=== PATIENT | male | born 1955 | race Caucasian/White ===

== ENCOUNTER 2016-09-08 10:04 | Emergency (ER) | payer MEDICAID ==
[~2016-09-08] VITALS: Ht 172.7 cm; Wt 97.2 kg
[2016-09-08] MEDS ORDERED: HYDROcodone/APAP 5/325 TABLET PO ONE (10:30)
[2016-09-08] MEDS ORDERED: METHOCARBAMOL 750 MG TABLET PO ONE (10:30)
[2016-09-08] MEDS ORDERED: KETOROLAC 30 MG/1 ML IM ONE (10:30)
[2016-09-08] MEDS ORDERED: HYDROcodone/APAP 5/325 TABLET ONE (10:37)
[2016-09-08] MEDS ORDERED: METHOCARBAMOL 750 MG TABLET ONE (10:37)
[2016-09-08] MEDS ORDERED: KETOROLAC 30 MG/1 ML ONE (10:37)
[2016-09-08 11:21] VITALS: BP 157/90
== END 2016-09-08 11:24 | disposition home or self-care (01) ==
LOC: ED 10:53
DX: G89.29 Other chronic pain (principal); M54.5 Low back pain; I10 Essential (primary) hypertension; E11.9 Type 2 diabetes mellitus without complications; Z88.0 Allergy status to penicillin
CPT/HCPCS: 96372; 99283; J1885

== ENCOUNTER 2016-10-26 19:45 | Observation (INO) | payer MEDICAID ==
[~2016-10-26] VITALS: Ht 172.7 cm; Wt 120.8 kg
[2016-10-26 20:22] LABS: ASPARTATE AMINO TRANSFERASE 39 U/L (15-37); BLOOD UREA NITROGEN 29 mg/dL (7-18)
[2016-10-26] MEDS ORDERED: SODIUM CHLORIDE 0.9% 1,000ML IVBOLUS ONE (21:00)
[2016-10-26] MEDS ORDERED: SODIUM CHLORIDE FLUSH 10ML SYR IVF ONE (21:00)
[2016-10-26] MEDS ORDERED: ONDANSETRON 2MG/ML, 2ML IVPush ONE (21:00)
[2016-10-26] MEDS ORDERED: HYDROmorphone 2 MG/ML, 1ML ONE (21:13)
[2016-10-26] MEDS ORDERED: ONDANSETRON 2MG/ML, 2ML ONE (21:13)
[2016-10-26] MEDS: HYDROmorphone 1 MG/ML, 1ML IVPush PRN ×2 (21:16→21:40)
[2016-10-26] MEDS ORDERED: FLUO20CA19 PO (21:22)
[2016-10-26] MEDS ORDERED: ASPI-515 PO (21:22)
[2016-10-26] MEDS ORDERED: METF10002 PO (21:22)
[2016-10-26] MEDS ORDERED: BUPIVACAINE/PF-EPI 0.5% 1:200K ONE (22:33)
[2016-10-26] MEDS ORDERED: MIDAZOLAM 1 MG/ML, 2ML ONE (22:38)
[2016-10-26] MEDS ORDERED: FENTANYL PF 250 MCG/5ML ONE (22:38)
[2016-10-26] MEDS ORDERED: DEXAMETHASONE 4 MG/ML, 1ML ONE (22:47)
[2016-10-26] MEDS ORDERED: SUCCINYLCHOLINE 20 MG/ML, 10ML ONE (22:47)
[2016-10-26] MEDS ORDERED: ALBUTEROL SULFATE 200 PUFFS/8.5 GR INH ONE (22:47)
[2016-10-26] MEDS ORDERED: PROPOFOL 10 MG/ML, 20ML ONE (22:47)
[2016-10-26] MEDS ORDERED: PHENYLEPHRINE 10 MG/ML ONE (22:47)
[2016-10-26] MEDS ORDERED: CEFAZOLIN 1,000 MG ONE (22:47)
[2016-10-26] MEDS ORDERED: BUPIVACAINE/PF-EPI 0.5% 1:200K INFIL ONE ×2 (23:15→23:53)
[2016-10-26 23:29] LABS: DAU SCREEN DISCLAIMER
[2016-10-27] MEDS ORDERED: HYDROmorphone 2 MG/ML, 1ML ONE (00:19)
[2016-10-27] MEDS ORDERED: FENTANYL PF 100 MCG/2ML ONE (00:20)
[2016-10-27] MEDS ORDERED: FENTANYL PF 100 MCG/2ML IV PRN (00:30)
[2016-10-27] MEDS ORDERED: HYDROmorphone 1 MG/ML, 1ML IVPush PRN (00:30)
[2016-10-27] MEDS ORDERED: LABETALOL 5MG/ML, 20ML IV PRN (00:30)
[2016-10-27] MEDS ORDERED: ONDANSETRON 2MG/ML, 2ML IVPush PRN ×2 (00:30)
[2016-10-27] MEDS ORDERED: PROMETHAZINE 25 MG/ML, 1ML IV PRN (00:30)
[2016-10-27] MEDS ORDERED: ACETAMINOPHEN 325 MG TABLET PO PRN ×2 (00:30)
[2016-10-27] MEDS ORDERED: ALBUTEROL/IPRATROPIUM 2.5MG/0.5MG, 3 ML NPPB PRN (00:30)
[2016-10-27] MEDS ORDERED: LABETALOL 5MG/ML, 20ML IVPush PRN (00:30)
[2016-10-27] MEDS ORDERED: HYDROmorphone 1 MG/ML, 1ML IV PRN (00:30)
[2016-10-27] MEDS ORDERED: MIDAZOLAM 1 MG/ML, 2ML IV PRN (00:30)
[2016-10-27] MEDS ORDERED: PROMETHAZINE 25 MG/ML, 1ML IM PRN (00:30)
[2016-10-27] MEDS ORDERED: MEPERIDINE/PF 25MG/0.5ML IVPush PRN (00:30)
[2016-10-27] MEDS ORDERED: ENALAPRILAT 1.25 MG/ML, 2ML IVPush PRN (00:30)
[2016-10-27] MEDS ORDERED: OXYcodone 5 MG/5 ML ORAL.SOL UDC PO PRN (00:30)
[2016-10-27] MEDS ORDERED: hydrALAzine 20 MG/ML, 1ML IV PRN (00:30)
[2016-10-27] MEDS ORDERED: LORazepam 2 MG/ML, 1ML IVPush PRN (02:30)
[2016-10-27] MEDS: D5%-0.45NACL+KCL 20MEQ 1,000 ML IV SCH ×2 (03:49→12:00)
[2016-10-27] MEDS: OXYcodone/APAP 7.5/325MG TABLET PO PRN ×2 (05:39→12:50)
[2016-10-27 08:03] VITALS: BP 119/69
[2016-10-27] MEDS ORDERED: OXYC-223 PO (10:39)
[2016-10-27 12:44] VITALS: BP 136/82
== END 2016-10-27 12:59 | disposition home or self-care (01) ==
LOC: ED 21:35 → EDIP 10-27 00:03 → 4NOR 10-27 01:00
PROVIDERS: ADMIT Surgery; ATTEND Surgery
DX: K44.0 Diaphragmatic hernia with obstruction, without gangrene (principal); I10 Essential (primary) hypertension; E11.9 Type 2 diabetes mellitus without complications; G89.29 Other chronic pain; M54.9 Dorsalgia, unspecified; J44.9 Chronic obstructive pulmonary disease, unspecified; E66.9 Obesity, unspecified; F32.9 Major depressive disorder, single episode, unspecified
CPT/HCPCS: 36415; 49507; 76857; 80053; 80307; 81001; 83605; 85025; 96374; 96375; 96376; 99285; C1781; G0378; J0330; J0690; J1100; J1170; J2060; J2250; J2370; J2405; J2704; J3010; J3480; J7030

== ENCOUNTER 2016-10-28 02:16 | Emergency (ER) | payer MEDICAID ==
[~2016-10-28] VITALS: Ht 172.7 cm; Wt 96.6 kg
[~2016-10-28 02:16] MED LIST: ASPI-515 PO; FLUO20CA19 PO; METF10002 PO; OXYC-223 PO
[2016-10-28 02:18] VITALS: BP 170/98
[2016-10-28] MEDS ORDERED: OXYcodone/APAP 5/325MG TABLET ONE (03:21)
[2016-10-28] MEDS ORDERED: OXYcodone/APAP 5/325MG TABLET PO ONE (03:30)
== END 2016-10-28 03:26 | disposition home or self-care (01) ==
LOC: ED 02:53
DX: Z76.0 Encounter for issue of repeat prescription (principal); I10 Essential (primary) hypertension; E11.9 Type 2 diabetes mellitus without complications; R10.9 Unspecified abdominal pain
CPT/HCPCS: 99282

== ENCOUNTER 2016-10-28 07:39 | Emergency (ER) | payer MEDICAID ==
[~2016-10-28] VITALS: Ht 172.7 cm; Wt 96.6 kg
[2016-10-28] MEDS ORDERED: OXYcodone/APAP 5/325MG TABLET ONE (08:16)
[2016-10-28] MEDS ORDERED: OXYcodone/APAP 5/325MG TABLET PO ONE (08:30)
[2016-10-28 08:53] LABS: ASPARTATE AMINO TRANSFERASE 30 U/L (15-37); BLOOD UREA NITROGEN 19 mg/dL (7-18)
[2016-10-28 10:20] LABS: PATH.CAST-FLAG NOT PRESENT; SPERM-FLAG NOT PRESENT; SRC-FLAG NOT PRESENT; XTAL-FLAG NOT PRESENT; YLC-FLAG NOT PRESENT
[2016-10-28 10:50] VITALS: BP 134/82
== END 2016-10-28 10:59 | disposition home or self-care (01) ==
LOC: ED 10:57
DX: Z76.0 Encounter for issue of repeat prescription (principal); E11.65 Type 2 diabetes mellitus with hyperglycemia; R10.30 Lower abdominal pain, unspecified; F17.210 Nicotine dependence, cigarettes, uncomplicated; I10 Essential (primary) hypertension
CPT/HCPCS: 36415; 76870; 80053; 81001; 83690; 85025; 99285

== ENCOUNTER 2016-11-03 05:25 | Emergency (ER) | payer MEDICAID ==
[~2016-11-03] VITALS: Ht 172.7 cm; Wt 93.2 kg
[2016-11-03 05:35] VITALS: BP 166/99
[2016-11-03] MEDS ORDERED: OXYcodone/APAP 5/325MG TABLET PO ONE (06:30)
== END 2016-11-03 06:34 | disposition home or self-care (01) ==
LOC: ED 06:27
DX: R10.31 Right lower quadrant pain (principal); E11.9 Type 2 diabetes mellitus without complications; I10 Essential (primary) hypertension
CPT/HCPCS: 99283

== ENCOUNTER 2016-12-28 19:52 | Emergency (ER) | payer MEDICAID ==
[~2016-12-28] VITALS: Ht 172.7 cm; Wt 95.9 kg
[~2016-12-28 19:52] MED LIST changes: -OXYC-223 PO; +OXYC-306 PO
[2016-12-28] MEDS ORDERED: ALBUTEROL SULFATE 2.5 MG/3 ML ONE (20:09)
[2016-12-28] MEDS ORDERED: methylPREDNISolone SOD SUCC 125 MG/2 ML ONE (20:20)
[2016-12-28 20:23] LABS: HEMATOCRIT 40.7 % (39.2-51.8); HEMOGLOBIN 13.7 g/dL (13.7-18.0); WHITE BLOOD COUNT 8.1 x10^3/uL (3.4-10)
[2016-12-28] MEDS ORDERED: ALBUTEROL/IPRATROPIUM 2.5MG/0.5MG, 3 ML NPPB ONE ×2 (20:30→21:30)
[2016-12-28] MEDS ORDERED: SODIUM CHLORIDE FLUSH 10ML SYR IVF ONE (20:30)
[2016-12-28] MEDS ORDERED: methylPREDNISolone SOD SUCC 125 MG/2 ML IVP ONE (20:30)
[2016-12-28 20:33] LABS: BLOOD UREA NITROGEN 15 mg/dL (7-18)
[2016-12-28 20:39] LABS: IS PT STATUS REG ER OR PRE ER? YES
[2016-12-28] MEDS ORDERED: ALBUTEROL/IPRATROPIUM 2.5MG/0.5MG, 3 ML ONE (21:07)
[2016-12-28 21:39] VITALS: BP 120/69
== END 2016-12-28 22:36 | disposition home or self-care (01) ==
LOC: ED 20:07
DX: J44.1 Chronic obstructive pulmonary disease with (acute) exacerbation (principal); I10 Essential (primary) hypertension; E11.9 Type 2 diabetes mellitus without complications; F17.210 Nicotine dependence, cigarettes, uncomplicated
CPT/HCPCS: 36415; 71010; 80048; 82040; 83880; 84484; 85025; 93005; 94640; 96374; 99284; J2930

== ENCOUNTER 2017-03-30 21:42 | Emergency (ER) | payer MEDICAID ==
[~2017-03-30] VITALS: Ht 172.7 cm; Wt 96.6 kg
[2017-03-30 21:43] VITALS: BP 156/103
[2017-03-30] MEDS ORDERED: DIPH,PERTUSS(ACELL),TET VAC/PF 0.5 ML IM-VACC ONE ×2 (22:00→22:03)
== END 2017-03-30 22:24 | disposition home or self-care (01) ==
LOC: ED 22:09
DX: S80.811A Abrasion, right lower leg, initial encounter (principal); G89.29 Other chronic pain; M54.9 Dorsalgia, unspecified; I10 Essential (primary) hypertension; E11.9 Type 2 diabetes mellitus without complications; J44.9 Chronic obstructive pulmonary disease, unspecified; F17.210 Nicotine dependence, cigarettes, uncomplicated; W45.0XXA Nail entering through skin, initial encounter; Y93.89 Activity, other specified; Y99.8 Other external cause status; Y92.410 Unspecified street and highway as the place of occurrence of the external cause
CPT/HCPCS: 90471; 90715

== ENCOUNTER 2017-04-20 13:52 | Emergency (ER) | payer MEDICAID ==
[~2017-04-20] VITALS: Ht 172.7 cm; Wt 93.4 kg
[2017-04-20 14:22] LABS: HEMATOCRIT 47.7 % (39.2-51.8); HEMOGLOBIN 16.1 g/dL (13.7-18.0); WHITE BLOOD COUNT 13.8 x10^3/uL (3.4-10)
[2017-04-20] MEDS ORDERED: ALBUTEROL SULFATE 2.5 MG/3 ML NPPB ONE (14:30)
[2017-04-20 14:31] LABS: BLOOD UREA NITROGEN 14 mg/dL (7-18)
[2017-04-20 16:45] VITALS: BP 126/86
== END 2017-04-20 16:46 | disposition home or self-care (01) ==
LOC: ED 16:12
DX: J20.9 Acute bronchitis, unspecified (principal); Z77.22 Contact with and (suspected) exposure to environmental tobacco smoke (acute) (chronic); J43.9 Emphysema, unspecified; M54.5 Low back pain; G89.29 Other chronic pain; I10 Essential (primary) hypertension; E11.9 Type 2 diabetes mellitus without complications
CPT/HCPCS: 36415; 71010; 80048; 82040; 85025; 93005; 99285; J7512

== ENCOUNTER 2017-05-21 11:34 | Emergency (ER) | payer MEDICAID ==
[~2017-05-21] VITALS: Ht 172.7 cm; Wt 91.0 kg
[2017-05-21 11:35] VITALS: BP 154/92
[2017-05-21] MEDS ORDERED: ALBUTEROL/IPRATROPIUM 2.5MG/0.5MG, 3 ML ONE (12:49)
[2017-05-21] MEDS ORDERED: BENZONATATE 100 MG CAPSULE PO ONE (13:00)
[2017-05-21] MEDS ORDERED: ALBUTEROL/IPRATROPIUM 2.5MG/0.5MG, 3 ML NPPB SCH (13:00)
== END 2017-05-21 13:39 | disposition home or self-care (01) ==
LOC: ED 13:20
DX: J44.1 Chronic obstructive pulmonary disease with (acute) exacerbation (principal); J20.9 Acute bronchitis, unspecified; I10 Essential (primary) hypertension; E11.9 Type 2 diabetes mellitus without complications
CPT/HCPCS: 71046; 93005; 94640; 99284; J7512; J7620

== ENCOUNTER 2017-09-16 12:01 | Emergency (ER) | payer MEDICAID ==
[~2017-09-16] VITALS: Ht 172.7 cm; Wt 90.8 kg
[~2017-09-16 12:01] MED LIST changes: +Aspirin PO; +Lipitor PO; +Melatonin PO; +Metformin PO; +Prozac PO
[2017-09-16 12:02] VITALS: BP 160/86
== END 2017-09-16 13:04 | disposition home or self-care (01) ==
LOC: ED 13:00
DX: B86 Scabies (principal); I10 Essential (primary) hypertension; E11.9 Type 2 diabetes mellitus without complications; J44.9 Chronic obstructive pulmonary disease, unspecified
CPT/HCPCS: 82962; 99283; Q0177

== ENCOUNTER 2017-09-30 18:25 | Inpatient (IN) | payer MEDICAID ==
[~2017-09-30] VITALS: Ht 172.7 cm; Wt 89.7 kg
[2017-09-30 19:19] LABS: MEAN CORPUSCULAR HEMOGLOBIN 29.2 pg (27.5-34.5); MEAN CORPUSCULAR HGB CONC 33.3 g/dL (33.2-36.2); MEAN CORPUSCULAR VOLUME 87.6 fL (81-97); MEAN PLATELET VOLUME 8.4 fL (7.4-10.4); PLATELET COUNT 209 x10^3/uL (130-400); RED BLOOD COUNT 4.96 x10^6/uL (4.38-5.82); RED CELL DISTRIBUTION WIDTH 15.6 % (9.4-14.8)
[2017-09-30 19:23] LABS: MD YES
[2017-09-30 19:31] LABS: ALANINE AMINOTRANSFERASE 40 U/L (12-78); ALBUMIN 3.6 g/dL (3.4-5.0); ANION GAP 6 mmol/L (5-15); CHLORIDE 102 mmol/L (98-107); CREATININE 2.01 mg/dL (0.7-1.3)
[2017-09-30 19:33] LABS: ALKALINE PHOSPHATASE 109 U/L (45-117); BILIRUBIN,TOTAL 0.5 mg/dL (0.2-1.0); TOTAL PROTEIN 7.8 g/dL (6.4-8.2)
[2017-09-30 19:53] LABS: <PLATELET ESTIMATE> ADEQUATE; <PLT MORPHOLOGY> NORMAL PLT MORPH; <RBC MORPHOLOGY> NORMAL; EOS#(MANUAL) 1.98 x10^3/uL (0.0-0.4); EOS% (MANUAL) 16 % (1-7); LYMPH#(MANUAL) 1.98 x10^3/uL (1-3.4); LYMPHS% (MANUAL) 16 % (22-44); MONOS#(MANUAL) 0.87 x10^3/uL (0.3-2.7); MONOS% (MANUAL) 7 % (2-9); SEG#(MANUAL) 7.56 x10^3/uL (1.8-6.8); SEGS% (MANUAL) 61 % (42-75)
[2017-09-30] MEDS ORDERED: DIPHENHYDRAMINE 50 MG/ML, 1ML ONE (20:20)
[2017-09-30] MEDS ORDERED: SODIUM CHLORIDE 0.9% 1,000ML IVBOLUS ONE (20:30)
[2017-09-30] MEDS ORDERED: ICN DIPHENHYDRAMINE 10 MG/ML INJ.DIL IV ONE (20:30)
[2017-09-30] MEDS ORDERED: SODIUM CHLORIDE FLUSH 10ML SYR IVF ONE (20:30)
[2017-09-30] MEDS ORDERED: DIPHENHYDRAMINE 50 MG/ML, 1ML IV ONE (20:30)
[2017-09-30] MEDS ORDERED: BACITRACIN ZINC OINT 500U/GM, 0.9 GM ONE (20:44)
[2017-09-30] MEDS ORDERED: ALBU2TAB PO (21:09)
[2017-09-30] MEDS ORDERED: HYPERTENSION (21:09)
[2017-09-30] MEDS ORDERED: BISACODYL 10 MG SUPP PR PRN (21:30)
[2017-09-30] MEDS ORDERED: ACETAMINOPHEN 325 MG TABLET PO PRN (21:30)
[2017-09-30] MEDS ORDERED: POLYETHYLENE GLYCOL 17 GM PACKET PO PRN (21:30)
[2017-09-30] MEDS ORDERED: DOCUSATE 100 MG CAPSULE PO PRN (21:30)
[2017-09-30] MEDS ORDERED: ONDANSETRON 2MG/ML, 2ML IVPush PRN (21:30)
[2017-09-30] MEDS ORDERED: CALAMINE LOTION 180ML TP PRN (21:30)
[2017-09-30] MEDS ORDERED: hydrALAzine 20 MG/ML, 1ML IVPush PRN (21:30)
[2017-09-30 21:54] LABS: MICROSCOPIC NOT IND
[2017-09-30 21:57] LABS: CULTURE INDICATED? NO
[2017-09-30 22:11] LABS: AMPHETAMINE SCREEN, URINE Positive (Negative); BARBITURATE SCREEN, URINE Negative (Negative); BENZODIAZEPINE SCREEN, URINE Negative (Negative); CANNABINOID SCREEN, URINE Negative (Negative); COCAINE SCREEN, URINE Negative (Negative); METHADONE SCREEN, URINE Negative (Negative); OPIATE SCREEN, URINE Negative (Negative)
[2017-09-30 22:30] VITALS: BP 125/85
[2017-09-30] MEDS: SODIUM CHLORIDE 0.9% 1,000 ML IV SCH (23:04)
[2017-09-30] MEDS: HEPARIN 5,000 UNITS/ML, 1ML SQ SCH (23:04)
[2017-10-01 01:53] VITALS: BP 131/78
[2017-10-01] MEDS: HEPARIN 5,000 UNITS/ML, 1ML SQ SCH ×3 (04:43→21:28)
[2017-10-01 05:51] LABS: BASOPHILS # (AUTO) 0.01 x10^3/uL (0-0.1); BASOPHILS % (AUTO) 0 % (0-1); EOSINOPHILS # (AUTO) 0.16 x10^3/uL (0-0.4); EOSINOPHILS % (AUTO) 2 % (1-7); LYMPHOCYTES # (AUTO) 0.51 x10^3/uL (1-3.4); LYMPHOCYTES % (AUTO) 7 % (22-44); MD NO; MEAN CORPUSCULAR HEMOGLOBIN 29.3 pg (27.5-34.5); MEAN CORPUSCULAR HGB CONC 32.9 g/dL (33.2-36.2); MEAN PLATELET VOLUME 8.4 fL (7.4-10.4); MONOCYTES # (AUTO) 0.11 x10^3/uL (0.2-0.8); MONOCYTES % (AUTO) 2 % (2-9); NEUTROPHILS # (AUTO) 7.02 x10^3/uL (1.8-6.8); NEUTROPHILS % (AUTO) 90 % (42-75); PLATELET COUNT 192 x10^3/uL (130-400); RED BLOOD COUNT 4.79 x10^6/uL (4.38-5.82); RED CELL DISTRIBUTION WIDTH 15.6 % (9.4-14.8)
[2017-10-01 05:56] LABS: CHLORIDE 104 mmol/L (98-107)
[2017-10-01 06:06] LABS: ALANINE AMINOTRANSFERASE 34 U/L (12-78); ALKALINE PHOSPHATASE 97 U/L (45-117); ANION GAP 9 mmol/L (5-15); BILIRUBIN,TOTAL 0.6 mg/dL (0.2-1.0); CALCIUM 8.6 mg/dL (8.5-10.1); CREATININE 1.45 mg/dL (0.7-1.3)
[2017-10-01 07:20] VITALS: BP 107/63
[2017-10-01 07:33] LABS: CREATININE,URINE RANDOM 44.7 mg/dL
[2017-10-01] MEDS: DIPHENHYDRAMINE 25 MG CAPSULE PO PRN ×2 (07:51→21:27)
[2017-10-01] MEDS ORDERED: methylPREDNISolone 4mg DOSE PACK PO SCH (08:00)
[2017-10-01] MEDS: SODIUM CHLORIDE 0.9% 1,000 ML IV SCH (08:03)
[2017-10-01 14:56] VITALS: BP 127/71
[2017-10-01 20:19] VITALS: BP 126/70
[2017-10-01] MEDS: HYDROXYZINE PAMOATE 50MG CAP PO PRN (22:31)
[2017-10-02 02:10] VITALS: BP 107/64
[2017-10-02] MEDS: HYDROXYZINE PAMOATE 50MG CAP PO PRN ×2 (05:25→20:18)
[2017-10-02] MEDS: DIPHENHYDRAMINE 25 MG CAPSULE PO PRN ×2 (05:25→20:18)
[2017-10-02] MEDS: HEPARIN 5,000 UNITS/ML, 1ML SQ SCH ×3 (05:26→22:27)
[2017-10-02 06:06] VITALS: BP 152/85
[2017-10-02 07:50] VITALS: BP 146/80
[2017-10-02 13:31] VITALS: BP 111/55
[2017-10-02 19:03] VITALS: BP 127/77
[2017-10-02] MEDS: FAMOTIDINE 20 MG TABLET PO SCH (20:18)
[2017-10-03 01:39] VITALS: BP 132/85
[2017-10-03] MEDS: DIPHENHYDRAMINE 25 MG CAPSULE PO PRN (05:30)
[2017-10-03] MEDS: HYDROXYZINE PAMOATE 50MG CAP PO PRN (05:30)
[2017-10-03] MEDS: HEPARIN 5,000 UNITS/ML, 1ML SQ SCH ×2 (05:30→14:10)
[2017-10-03 06:13] LABS: CHLORIDE 103 mmol/L (98-107)
[2017-10-03 07:04] LABS: ANION GAP 10 mmol/L (5-15); CALCIUM 8.9 mg/dL (8.5-10.1)
[2017-10-03 07:18] VITALS: BP 136/80
[2017-10-03] MEDS: FAMOTIDINE 20 MG TABLET PO SCH (08:59)
[2017-10-03] MEDS ORDERED: FAMO20TA7 PO (13:37)
[2017-10-03] MEDS ORDERED: CALA118S2 TP (13:37)
[2017-10-03] MEDS ORDERED: PRED10TA PO (13:37)
[2017-10-03] MEDS ORDERED: HYDR50CA2 PO (13:37)
[2017-10-03] MEDS ORDERED: DIPH25CA61 PO (13:37)
[2017-10-03 15:19] VITALS: BP 151/87
== END 2017-10-03 18:45 | disposition home or self-care (01) | DRG 606 ==
LOC: ED 20:22 → EDIP 21:22 → 4WST 22:26
PROVIDERS: ADMIT Internal Medicine; ATTEND Hospitalist
DX: L30.8 Other specified dermatitis (principal); N17.0 Acute kidney failure with tubular necrosis; E87.1 Hypo-osmolality and hyponatremia; L29.9 Pruritus, unspecified; B86 Scabies; E87.5 Hyperkalemia; F17.210 Nicotine dependence, cigarettes, uncomplicated; F41.9 Anxiety disorder, unspecified; I11.9 Hypertensive heart disease without heart failure; J44.9 Chronic obstructive pulmonary disease, unspecified; L50.1 Idiopathic urticaria; E11.65 Type 2 diabetes mellitus with hyperglycemia; Z79.84 Long term (current) use of oral hypoglycemic drugs
CPT/HCPCS: 36415; 80048; 80053; 80307; 81003; 82436; 82570; 83735; 84132; 84133; 84300; 85025; 93005; 96361; 96374; J1644; J7509; J7030; J7512; Q0163; Q0177

== ENCOUNTER 2017-11-25 02:53 | Inpatient (IN) | payer MEDICAID ==
[~2017-11-25] VITALS: Ht 172.7 cm; Wt 84.9 kg
[~2017-11-25 02:53] MED LIST changes: +ALBU2TAB PO; +CALA118S2 TP; +DIPH25CA61 PO; +FAMO20TA7 PO; +HYDR50CA2 PO; +HYPERTENSION; +PRED10TA PO
[2017-11-25] MEDS ORDERED: ALBUTEROL SULFATE 2.5 MG/3 ML NPPB ONE (03:00)
[2017-11-25] MEDS ORDERED: methylPREDNISolone SOD SUCC 125 MG/2 ML IVP ONE (03:00)
[2017-11-25] MEDS ORDERED: ALBUTEROL SULFATE 2.5 MG/3 ML ONE (03:12)
[2017-11-25 03:17] LABS: MEAN CORPUSCULAR HGB CONC 33.8 g/dL (33.2-36.2); MEAN CORPUSCULAR VOLUME 85.8 fL (81-97); MEAN PLATELET VOLUME 7.8 fL (7.4-10.4); PLATELET COUNT 211 x10^3/uL (130-400); RED BLOOD COUNT 4.87 x10^6/uL (4.38-5.82); RED CELL DISTRIBUTION WIDTH 15.1 % (9.4-14.8)
[2017-11-25 03:28] LABS: ALANINE AMINOTRANSFERASE 20 U/L (12-78); ALBUMIN 3.1 g/dL (3.4-5.0); ANION GAP 8 mmol/L (5-15); CALCIUM 8.2 mg/dL (8.5-10.1); CHLORIDE 101 mmol/L (98-107); CREATININE 1.08 mg/dL (0.7-1.3)
[2017-11-25 03:33] LABS: ALKALINE PHOSPHATASE 94 U/L (45-117); BILIRUBIN,TOTAL 0.5 mg/dL (0.2-1.0); TOTAL PROTEIN 6.9 g/dL (6.4-8.2); TROPONIN I < 0.015 ng/mL (0.000-0.045)
[2017-11-25] MEDS ORDERED: methylPREDNISolone SOD SUCC 125 MG/2 ML ONE (03:37)
[2017-11-25 03:49] LABS: BASOPHILS % (AUTO) 0 % (0-1); EOSINOPHILS # (AUTO) 0.44 x10^3/uL (0-0.4); EOSINOPHILS % (AUTO) 4 % (1-7); LYMPHOCYTES # (AUTO) 0.63 x10^3/uL (1-3.4); LYMPHOCYTES % (AUTO) 5 % (22-44); MD SCAN; MONOCYTES # (AUTO) 0.26 x10^3/uL (0.2-0.8); MONOCYTES % (AUTO) 2 % (2-9); NEUTROPHILS # (AUTO) 10.55 x10^3/uL (1.8-6.8); NEUTROPHILS % (AUTO) 89 % (42-75)
[2017-11-25] MEDS ORDERED: METF500T5 PO (04:27)
[2017-11-25] MEDS ORDERED: SODIUM CHLORIDE 0.9% 1,000 ML IV ONE (04:29)
[2017-11-25] MEDS ORDERED: SODIUM CHLORIDE 0.9% 1,000ML IVBOLUS ONE (04:30)
[2017-11-25] MEDS ORDERED: AZITHROMYCIN 500 MG in SODIUM CHLORIDE 0.9% 250 ML IV ONE (04:30)
[2017-11-25] MEDS ORDERED: ONDANSETRON 2MG/ML, 2ML IVPush PRN ×2 (04:30→05:30)
[2017-11-25] MEDS ORDERED: MORPHINE SULFATE 4 MG/ML, 1ML IVPush PRN (04:30)
[2017-11-25] MEDS ORDERED: CEFTRIAXONE 1,000 MG in SODIUM CHLORIDE 0.9% 50 ML IVPB ONE (04:30)
[2017-11-25] MEDS ORDERED: CEFTRIAXONE PMX 1GM/50ML 50 ML ONE (05:02)
[2017-11-25] MEDS ORDERED: ENALAPRILAT 1.25 MG/ML, 2ML IVPush PRN (05:30)
[2017-11-25] MEDS ORDERED: ACETAMINOPHEN 325 MG TABLET PO PRN (05:30)
[2017-11-25] MEDS ORDERED: POLYETHYLENE GLYCOL 17 GM PACKET PO PRN (05:30)
[2017-11-25] MEDS ORDERED: GUAIFENESIN/DM 200-20MG, 10ML UDC PO PRN (05:30)
[2017-11-25] MEDS: ENOXAPARIN 40 MG/0.4 ML SQ SCH (05:48)
[2017-11-25] MEDS: SODIUM CHLORIDE 0.9% 1,000 ML IV SCH ×2 (05:48→20:42)
[2017-11-25 05:55] VITALS: BP 123/80
[2017-11-25] MEDS: DOXYCYCLINE 100 MG in DEXTROSE 5% 250 ML IV SCH ×2 (06:16→17:26)
[2017-11-25 06:47] VITALS: BP 108/65
[2017-11-25 06:48] VITALS: BP 132/81
[2017-11-25] MEDS: ALBUTEROL SULFATE 2.5 MG/3 ML NPPB SCH ×4 (06:50→20:10)
[2017-11-25] MEDS: methylPREDNISolone SOD SUCC 40 MG/ML IVPush SCH ×3 (08:26→20:42)
[2017-11-25] MEDS: FAMOTIDINE 20 MG TABLET PO SCH ×2 (08:26→20:42)
[2017-11-25] MEDS: NICOTINE 7 MG/24 HR PATCH.TD24 TD SCH (11:12)
[2017-11-25 12:22] VITALS: BP 111/72
[2017-11-25] MEDS: INSULIN REGULAR 100 UNITS/ML, 3ML VIAL SQ-INSULIN SCH ×3 (12:39→20:44)
[2017-11-25 19:22] VITALS: BP 113/68
[2017-11-25] MEDS ORDERED: hydrOXyzine 10 MG/5 ML ORAL SOL PO PRN (20:00)
[2017-11-26 01:17] VITALS: BP 112/76
[2017-11-26] MEDS: methylPREDNISolone SOD SUCC 40 MG/ML IVPush SCH ×4 (02:58→21:24)
[2017-11-26 05:31] LABS: MEAN CORPUSCULAR HEMOGLOBIN 29.7 pg (27.5-34.5); MEAN CORPUSCULAR HGB CONC 33.8 g/dL (33.2-36.2); MEAN CORPUSCULAR VOLUME 87.7 fL (81-97); MEAN PLATELET VOLUME 8.2 fL (7.4-10.4); PLATELET COUNT 215 x10^3/uL (130-400); RED BLOOD COUNT 4.56 x10^6/uL (4.38-5.82); RED CELL DISTRIBUTION WIDTH 14.8 % (9.4-14.8)
[2017-11-26] MEDS: ENOXAPARIN 40 MG/0.4 ML SQ SCH (05:35)
[2017-11-26] MEDS: CEFTRIAXONE 1,000 MG in SODIUM CHLORIDE 0.9% 50 ML IV SCH (05:35)
[2017-11-26 05:43] LABS: CHLORIDE 105 mmol/L (98-107)
[2017-11-26 05:50] LABS: ANION GAP 7 mmol/L (5-15); CALCIUM 8.6 mg/dL (8.5-10.1); CREATININE 0.81 mg/dL (0.7-1.3)
[2017-11-26 06:07] LABS: BASOPHILS # (AUTO) 0.03 x10^3/uL (0-0.1); BASOPHILS % (AUTO) 0 % (0-1); EOSINOPHILS % (AUTO) 0 % (1-7); LYMPHOCYTES # (AUTO) 0.84 x10^3/uL (1-3.4); LYMPHOCYTES % (AUTO) 6 % (22-44); MD SCAN; MONOCYTES # (AUTO) 0.66 x10^3/uL (0.2-0.8); MONOCYTES % (AUTO) 5 % (2-9); NEUTROPHILS # (AUTO) 12.93 x10^3/uL (1.8-6.8); NEUTROPHILS % (AUTO) 89 % (42-75)
[2017-11-26] MEDS: DOXYCYCLINE 100 MG in DEXTROSE 5% 250 ML IV SCH ×2 (06:15→17:35)
[2017-11-26 06:30] VITALS: BP 133/82
[2017-11-26] MEDS: FAMOTIDINE 20 MG TABLET PO SCH ×2 (08:14→21:23)
[2017-11-26] MEDS: INSULIN REGULAR 100 UNITS/ML, 3ML VIAL SQ-INSULIN SCH ×4 (08:14→20:50)
[2017-11-26] MEDS: ALBUTEROL SULFATE 2.5 MG/3 ML NPPB SCH ×4 (08:19→20:00)
[2017-11-26] MEDS: SODIUM CHLORIDE 0.9% 1,000 ML IV SCH (11:13)
[2017-11-26 12:05] VITALS: BP 112/66
[2017-11-26] MEDS: NICOTINE 7 MG/24 HR PATCH.TD24 TD SCH (12:11)
[2017-11-26 19:02] VITALS: BP 135/83
[2017-11-27 01:42] VITALS: BP 119/63
[2017-11-27] MEDS: methylPREDNISolone SOD SUCC 40 MG/ML IVPush SCH ×3 (03:53→16:34)
[2017-11-27] MEDS: SODIUM CHLORIDE 0.9% 1,000 ML IV SCH (03:53)
[2017-11-27] MEDS: CEFTRIAXONE 1,000 MG in SODIUM CHLORIDE 0.9% 50 ML IV SCH (04:43)
[2017-11-27] MEDS: ENOXAPARIN 40 MG/0.4 ML SQ SCH (04:43)
[2017-11-27] MEDS: DOXYCYCLINE 100 MG in DEXTROSE 5% 250 ML IV SCH (05:41)
[2017-11-27] MEDS: DIPHENHYDRAMINE/ZINC CRM 2%, 30GM TP PRN ×2 (05:42→21:52)
[2017-11-27] MEDS: ALBUTEROL SULFATE 2.5 MG/3 ML NPPB SCH ×3 (06:44→14:06)
[2017-11-27 07:17] VITALS: BP 144/84
[2017-11-27] MEDS: FAMOTIDINE 20 MG TABLET PO SCH ×2 (08:06→21:40)
[2017-11-27] MEDS: INSULIN REGULAR 100 UNITS/ML, 3ML VIAL SQ-INSULIN SCH ×4 (08:07→21:51)
[2017-11-27 08:09] LABS: ANION GAP 9 mmol/L (5-15); CALCIUM 8.7 mg/dL (8.5-10.1); CHLORIDE 103 mmol/L (98-107); CREATININE 0.82 mg/dL (0.7-1.3)
[2017-11-27 08:17] LABS: BASOPHILS # (AUTO) 0.01 x10^3/uL (0-0.1); BASOPHILS % (AUTO) 0 % (0-1); EOSINOPHILS % (AUTO) 0 % (1-7); LYMPHOCYTES # (AUTO) 0.97 x10^3/uL (1-3.4); LYMPHOCYTES % (AUTO) 7 % (22-44); MD NO; MEAN CORPUSCULAR HEMOGLOBIN 28.8 pg (27.5-34.5); MEAN CORPUSCULAR HGB CONC 33.4 g/dL (33.2-36.2); MEAN CORPUSCULAR VOLUME 86.1 fL (81-97); MEAN PLATELET VOLUME 8.4 fL (7.4-10.4); MONOCYTES # (AUTO) 0.42 x10^3/uL (0.2-0.8); MONOCYTES % (AUTO) 3 % (2-9); NEUTROPHILS # (AUTO) 12.06 x10^3/uL (1.8-6.8); NEUTROPHILS % (AUTO) 90 % (42-75); PLATELET COUNT 238 x10^3/uL (130-400); RED BLOOD COUNT 4.63 x10^6/uL (4.38-5.82); RED CELL DISTRIBUTION WIDTH 15.6 % (9.4-14.8)
[2017-11-27] MEDS: NICOTINE 7 MG/24 HR PATCH.TD24 TD SCH (12:11)
[2017-11-27 14:28] VITALS: BP 128/69
[2017-11-27 19:45] VITALS: BP 142/56
[2017-11-27] MEDS: DOXYCYCLINE 100MG TABLET PO SCH (21:40)
[2017-11-27] MEDS: CEFDINIR 300 MG CAPSULE PO SCH (21:40)
[2017-11-28] MEDS: methylPREDNISolone SOD SUCC 40 MG/ML IVPush SCH ×2 (01:51→08:57)
[2017-11-28 02:27] VITALS: BP 135/76
[2017-11-28] MEDS: ENOXAPARIN 40 MG/0.4 ML SQ SCH (05:36)
[2017-11-28 07:18] VITALS: BP 155/85
[2017-11-28] MEDS: INSULIN REGULAR 100 UNITS/ML, 3ML VIAL SQ-INSULIN SCH ×2 (08:57→12:36)
[2017-11-28] MEDS: CEFDINIR 300 MG CAPSULE PO SCH (08:58)
[2017-11-28] MEDS: FAMOTIDINE 20 MG TABLET PO SCH (08:58)
[2017-11-28] MEDS: DOXYCYCLINE 100MG TABLET PO SCH (08:58)
[2017-11-28] MEDS ORDERED: ALBUTEROL SULFATE 2.5 MG/3 ML NPPB PRN (09:00)
[2017-11-28] MEDS ORDERED: DOXY100T PO (12:08)
[2017-11-28] MEDS ORDERED: PRED20TA PO (12:08)
[2017-11-28] MEDS ORDERED: CEFD300C37 PO (12:08)
[2017-11-28] MEDS: NICOTINE 7 MG/24 HR PATCH.TD24 TD SCH (12:37)
[2017-11-28 13:25] VITALS: BP 142/83
== END 2017-11-28 15:45 | disposition home or self-care (01) | DRG 193 ==
LOC: ED 03:00 → EDIP 04:29 → 4EST 05:22 → DCLOUNGE 11-28 15:37
PROVIDERS: ADMIT Hospitalist; ATTEND Hospitalist
DX: J15.9 Unspecified bacterial pneumonia (principal); E43 Unspecified severe protein-calorie malnutrition; J96.01 Acute respiratory failure with hypoxia; E87.2 Acidosis; J44.0 Chronic obstructive pulmonary disease with (acute) lower respiratory infection; J44.1 Chronic obstructive pulmonary disease with (acute) exacerbation; F17.210 Nicotine dependence, cigarettes, uncomplicated; I11.9 Hypertensive heart disease without heart failure; L27.0 Generalized skin eruption due to drugs and medicaments taken internally; F32.9 Major depressive disorder, single episode, unspecified; G89.29 Other chronic pain; M54.9 Dorsalgia, unspecified; E11.65 Type 2 diabetes mellitus with hyperglycemia; Z59.0 Homelessness; Z68.28 Body mass index [BMI] 28.0-28.9, adult
CPT/HCPCS: 36415; 84145; 99285; J7613; 71045; 71260; 80048; 80053; 82962; 83605; 83735; 84100; 84484; 85025; 87040; 93005; 94640; 96374; J0696; J1650; J7060; J2920; J2930; J7030; Q0177

== ENCOUNTER 2018-02-01 22:36 | Emergency (ER) | payer MEDICAID ==
[~2018-02-01] VITALS: Ht 172.7 cm; Wt 81.6 kg
[~2018-02-01 22:36] MED LIST changes: +CEFD300C37 PO; +DOXY100T PO; +METF500T17 PO; +PRED20TA PO
[2018-02-01 23:09] VITALS: BP 135/82
[2018-02-01] MEDS ORDERED: ACETAMINOPHEN 500 MG TABLET ONE (23:14)
[2018-02-01] MEDS ORDERED: DOXYCYCLINE 100MG TABLET ONE (23:14)
[2018-02-01] MEDS ORDERED: LIDOCAINE 1%-EPI 1:100K, 20ML ONE (23:20)
[2018-02-01] MEDS ORDERED: LIDOCAINE 1%, 10ML INFIL ONE (23:30)
[2018-02-01] MEDS ORDERED: ACETAMINOPHEN 500 MG TABLET PO ONE (23:30)
[2018-02-01] MEDS ORDERED: DOXYCYCLINE 100MG TABLET PO ONE (23:30)
[2018-02-01] MEDS ORDERED: LIDOCAINE 1%-EPI 1:100K, 20ML SQ ONE (23:30)
== END 2018-02-02 00:06 | disposition home or self-care (01) ==
LOC: ED 02-02 00:05
DX: L02.212 Cutaneous abscess of back [any part, except buttock and flank] (principal); J44.9 Chronic obstructive pulmonary disease, unspecified; E11.9 Type 2 diabetes mellitus without complications; I10 Essential (primary) hypertension; F17.200 Nicotine dependence, unspecified, uncomplicated
CPT/HCPCS: 10060; 93005; 99283

== ENCOUNTER 2018-04-01 05:55 | Emergency (ER) | payer MEDICAID ==
[~2018-04-01] VITALS: Ht 172.7 cm; Wt 84.1 kg
[2018-04-01] MEDS ORDERED: ACETAMINOPHEN 500 MG TABLET ONE (06:19)
[2018-04-01] MEDS ORDERED: ACETAMINOPHEN 500 MG TABLET PO ONE (06:30)
[2018-04-01 06:38] LABS: RAPID INFLUENZA A Negative (Negative); RAPID INFLUENZA B Negative (Negative)
[2018-04-01 06:44] LABS: MEAN CORPUSCULAR HEMOGLOBIN 28.7 pg (27.5-34.5); MEAN CORPUSCULAR HGB CONC 33.7 g/dL (33.2-36.2); MEAN PLATELET VOLUME 7.6 fL (7.4-10.4); PLATELET COUNT 222 x10^3/uL (130-400); RED BLOOD COUNT 4.89 x10^6/uL (4.38-5.82); RED CELL DISTRIBUTION WIDTH 15.7 % (9.4-14.8)
[2018-04-01 06:49] LABS: ALBUMIN 2.9 g/dL (3.4-5.0); ANION GAP 9 mmol/L (5-15); CALCIUM 8.1 mg/dL (8.5-10.1); CHLORIDE 96 mmol/L (98-107)
[2018-04-01] MEDS ORDERED: MELA3TAB62 PO (07:10)
[2018-04-01] MEDS ORDERED: LISI-170 PO (07:10)
[2018-04-01] MEDS ORDERED: SERT25TA3 PO (07:10)
[2018-04-01] MEDS ORDERED: CETI-237 PO (07:10)
[2018-04-01] MEDS ORDERED: AZITHROMYCIN 500 MG TABLET PO ONE (07:30)
[2018-04-01] MEDS ORDERED: CEFTRIAXONE 1,000 MG IM ONE (07:30)
[2018-04-01] MEDS ORDERED: AZITHROMYCIN 250 MG TABLET ONE (07:35)
[2018-04-01] MEDS ORDERED: CEFTRIAXONE 1,000 MG ONE (07:35)
[2018-04-01 08:00] VITALS: BP 107/62
[2018-04-01 08:28] LABS: BASOPHILS # (AUTO) 0.01 x10^3/uL (0-0.1); BASOPHILS % (AUTO) 0 % (0-1); EOSINOPHILS # (AUTO) 2.06 x10^3/uL (0-0.4); EOSINOPHILS % (AUTO) 15 % (1-7); LYMPHOCYTES # (AUTO) 0.74 x10^3/uL (1-3.4); LYMPHOCYTES % (AUTO) 5 % (22-44); MD SCAN; MONOCYTES # (AUTO) 0.49 x10^3/uL (0.2-0.8); MONOCYTES % (AUTO) 4 % (2-9); NEUTROPHILS # (AUTO) 10.52 x10^3/uL (1.8-6.8); NEUTROPHILS % (AUTO) 76 % (42-75)
== END 2018-04-01 08:03 | disposition home or self-care (01) ==
LOC: ED 07:16
DX: J18.0 Bronchopneumonia, unspecified organism (principal); J44.9 Chronic obstructive pulmonary disease, unspecified; E11.65 Type 2 diabetes mellitus with hyperglycemia; I10 Essential (primary) hypertension; G89.29 Other chronic pain
CPT/HCPCS: 36415; 71046; 80048; 82040; 85025; 87400; 93005; 96372; 99284; J0696

== ENCOUNTER 2018-07-17 17:44 | Emergency (ER) | payer MEDICAID ==
[~2018-07-17] VITALS: Ht 172.7 cm; Wt 88.0 kg
[~2018-07-17 17:44] MED LIST changes: +CETI-237 PO; +LISI-170 PO; +MELA3TAB62 PO; +SERT25TA3 PO
[2018-07-17 18:12] VITALS: BP 102/59
[2018-07-17] MEDS ORDERED: LIDOCAINE-MPF 1%, 5ML INFIL ONE (18:30)
[2018-07-17] MEDS ORDERED: BACITRACIN ZINC OINT 500U/GM, 0.9 GM ONE (18:46)
[2018-07-17] MEDS ORDERED: LIDOCAINE-MPF 1%, 5ML ONE (18:46)
[2018-07-17] MEDS ORDERED: ACETAMINOPHEN 325 MG TABLET ONE (19:24)
[2018-07-17] MEDS ORDERED: ACETAMINOPHEN 325 MG TABLET PO ONE (19:30)
== END 2018-07-17 19:37 | disposition home or self-care (01) ==
LOC: ED 19:25
DX: L02.01 Cutaneous abscess of face (principal); L72.3 Sebaceous cyst; E11.9 Type 2 diabetes mellitus without complications; I10 Essential (primary) hypertension; M54.9 Dorsalgia, unspecified; G89.29 Other chronic pain; J44.9 Chronic obstructive pulmonary disease, unspecified; F17.200 Nicotine dependence, unspecified, uncomplicated
CPT/HCPCS: 10060; 99283

== ENCOUNTER 2018-07-19 03:53 | Emergency (ER) | payer MEDICAID ==
--- NOTE | 2018-07-19 04:00 | NUR ---
called in the lobby, no answer.
--- NOTE | 2018-07-19 04:17 | NUR ---
2nd call. not in the lobby. per registration patient left.
== END 2018-07-19 04:19 | disposition left against medical advice (07) ==
LOC: ED 04:13
DX: Z53.21 Procedure and treatment not carried out due to patient leaving prior to being seen by health care provider (principal)

== ENCOUNTER 2019-04-05 13:24 | Emergency (ER) | payer MEDICARE, MEDICAID ==
[~2019-04-05] VITALS: Ht 172.7 cm; Wt 91.1 kg
[2019-04-05 13:34] VITALS: BP 151/87
[2019-04-05] MEDS ORDERED: HYDROcodone/APAP 5/325 TABLET ONE (14:23)
[2019-04-05] MEDS ORDERED: HYDROcodone/APAP 5/325 TABLET PO ONE (14:30)
== END 2019-04-05 14:36 | disposition home or self-care (01) ==
LOC: ED 14:10
DX: L02.11 Cutaneous abscess of neck (principal); L02.213 Cutaneous abscess of chest wall; E11.9 Type 2 diabetes mellitus without complications; J44.9 Chronic obstructive pulmonary disease, unspecified; F17.200 Nicotine dependence, unspecified, uncomplicated
CPT/HCPCS: 99283